=== PATIENT | female | born 1975 | race African-American/Black ===

== ENCOUNTER 2020-02-09 12:54 | Emergency (ER) | payer MEDICAID, OTHER ==
[~2020-02-09] VITALS: Ht 170.2 cm; Wt 66.0 kg
[~2020-02-09 12:54] MED LIST: NITR50CA
[2020-02-09 13:01] VITALS: BP 111/67
== END 2020-02-09 15:17 | disposition left against medical advice (07) ==
LOC: ER 13:03
DX: Z53.21 Procedure and treatment not carried out due to patient leaving prior to being seen by health care provider (principal); Z87.11 Personal history of peptic ulcer disease
CPT/HCPCS: 93005